=== PATIENT | female | born 1990 | race Caucasian/White ===

== ENCOUNTER 2021-05-28 20:47 | Emergency (ER) | payer SELFPAY ==
[2021-05-28 22:38] LABS: CORONAVIRUS 2019 SARS-COV-2 NEGATIVE (NEGATIVE); INFLUENZA A NAA NEGATIVE (NEGATIVE)
[2021-05-29] MEDS ORDERED: MEDROL 4MG DOSEP4 MG PO (00:06)
== END 2021-05-29 00:30 | disposition home or self-care (01) ==
LOC: FER 20:47
PROVIDERS: Emergency Medicine
DX: M47.816 Spondylosis without myelopathy or radiculopathy, lumbar region (principal); M48.07 Spinal stenosis, lumbosacral region; M40.46 Postural lordosis, lumbar region; Z20.822 Contact with and (suspected) exposure to COVID-19; Z88.1 Allergy status to other antibiotic agents; Z91.040 Latex allergy status
CPT/HCPCS: 72131; J1170; J1885; U0002